=== PATIENT | male | born 1950 | race Caucasian/White ===

== ENCOUNTER 2016-11-12 13:07 | Inpatient (IN) | payer MEDICARE, OTHER ==
--- NOTE | ~2016-11-12 | CN ---
Consultation Report [address] [place]. [address] NAME: DIEGO TAPIA : 50 STATUS : ADM IN PAT#: [id number] AGE: 66 ADM/REG DATE : 11/12/16 MR#: [id number] REPORT SERV DATE: 11/13/16 DICTATED BY: OBDULIO SHAFFER DATE: 11/13/16 REPORT STATUS : Draft TRANSCRIBED BY: MODRuy DATE: 11/13/16 CONSULTATION DATE OF CONSULTATION: 11/13/2016 REASON FOR THE VISIT: Atrial fibrillation. HISTORY OF PRESENT ILLNESS: Mr. Tapia is a 66-year-old man, I saw about a month ago here for atrial fibrillation with rapid ventricular response. Unfortunately, he has a significant component of mental illness, and I am not entirely sure if he understands the gravity of his illness. He was also diagnosed with severe congestive heart failure with an ejection fraction of less than 20%. We attempted medical management with a rate control strategy. He returns for essentially the same issues and also some cellulitis. PAST MEDICAL HISTORY: 1. Asthma. 2. Psychiatric illness. 3. Hypertension. 4. Congestive heart failure with ejection fraction about 15%. 5. Atrial fibrillation, probably chronic. SOCIAL HISTORY: He lives in a snf. Smokes. FAMILY HISTORY: Noncontributory. HOME MEDICATIONS: 1. Aspirin 325 mg daily. 2. Lipitor 10 mg every night at bedtime. 3. Coreg 25 mg b.i.d. 4. Klonopin 0.5 mg daily. 5. Pradaxa 150 mg b.i.d. 6. Digoxin 0.25 mg daily. 7. Diltiazem 30 mg b.i.d. 8. Lasix 40 mg b.i.d. 9. Lisinopril 5 mg daily. 10.Zyprexa 20 mg every night at bedtime. 11.Potassium 20 mEq daily. ALLERGIES: NO KNOWN DRUG ALLERGIES. REVIEW OF SYSTEMS: A 10-system review was asked, but is not necessarily well answered. He complains of fatigue. No recent cold or flu symptoms. No fevers. Denies palpitations or chest pain. No syncope. Consultation Report [address] [place]. [address] NAME: DIEGO TAPIA : 50 STATUS : ADM IN PAT#: [id number] AGE: 66 ADM/REG DATE : 11/12/16 MR#: [id number] REPORT SERV DATE: 11/13/16 DICTATED BY: OBDULIO SHAFFER DATE: 11/13/16 REPORT STATUS : Draft TRANSCRIBED BY: LESA DATE: 11/13/16 PHYSICAL EXAMINATION: VITAL SIGNS: Temperature 97.1, heart rate 130, blood pressure 110/70. GENERAL: Mr. Tapia is a well-developed man, in no acute distress. He is alert and oriented to person and hospital. HEENT: Negative. No dehydration. No teeth. NECK: Does not show JVD. LUNGS: Have some rhonchi. No wheezing. HEART: Tones are fast and irregular. ABDOMEN: Negative. He has good bowel sounds. EXTREMITIES: Show chronic edema and chronic venous stasis changes in his bilateral lower legs. SKIN: Significant for that. Minimal bruising. NEUROLOGIC: He has normal speech. He is somewhat tangential. Moves all four extremities. LABORATORY DATA: White blood cell count 13, hematocrit 48, platelet count 354. INR 1.3. Sodium 134, potassium 5.1, BUN 41, creatinine 1.2. His troponin is 0.08. TSH 0.67. Electrocardiogram shows atrial fibrillation with a rapid ventricular response. IMPRESSION: 1. Continued atrial fibrillation with a rapid ventricular response. 2. Congestive heart failure with ejection fraction of 15% last month. 3. Mental illness. 4. Cellulitis. PLAN: As I stated, last time I saw him, if rate control fails, then AV node ablation and pacemaker placement is his best hope for any sort of cardiac recovery. I do not think an AICD would be justified due to his significant mental illness. However, the continued RVR will certainly lead to worsening problems sooner rather than later. I have offered him AV node ablation and pacemaker today. However, he is adamant that he does not want this. Unfortunately, I am sure that he does not understand the situation. I will speak with his family to see if we can make any headway there because I do believe this would be best for him and his health. He will continue his blood thinners for now. Continue rate control. [facility]/LESA Obdulio Shaffer M.D. / [id number] CC: Consultation Report [place] [id number] [place]. [address] NAME: DIEGO TAPIA : 50 STATUS : ADM IN PAT#: [id number] AGE: 66 ADM/REG DATE : 11/12/16 MR#: [id number] REPORT SERV DATE: 11/13/16 DICTATED BY: OBDULIO SHAFFER DATE: 11/13/16 REPORT STATUS : Draft TRANSCRIBED BY: MODL DATE: 11/13/16 Suman Brewer M.D.
--- NOTE | ~2016-11-12 | IDS ---
Interim Discharge Summary [facility] [address] [place]. [address] NAME: DIEGO TAPIA : 50 STATUS : ADM IN PAT#: [id number] AGE: 66 ADM/REG DATE : 11/12/16 MR#: [id number] REPORT SERV DATE: 11/16/16 DICTATED BY: SHA JOSHI DATE: 11/16/16 REPORT STATUS : Draft TRANSCRIBED BY: MODL DATE: 11/16/16 ADMISSION DATE: 11/12/2016 DISCHARGE DATE: PRINCIPAL DIAGNOSIS: Acute on chronic systolic congestive heart failure, ejection fraction 15%. SECONDARY DIAGNOSES: 1. Atrial fibrillation with rapid ventricular response with nonsustained ventricular tachyarrhythmias. 2. Stasis dermatitis with venous stasis ulcerations without cellulitis. 3. Schizophrenia. HISTORY OF PRESENT ILLNESS: Please see Dr. Ruiz's dictation, 11/12/2016. HOSPITAL COURSE: The patient was admitted with weeping wounds in his legs with a great deal of erythema; however, the limbs were cool. It was felt to be cellulitis initially; however, was not in fact felt to be infected. However, he was extremely volume overloaded. Diuretic infusion was instituted with modest benefit limited by the patient's refusal to lay supine or elevate his leg at any time, in fact, he insisted on sitting up or walking about with fluid running down his legs. The patient refused to even acknowledge that fluid is running down his legs, that he had ulcers, and that he had edema. He denies shortness of breath or chest pain. Meanwhile, he continued to have episodes of atrial fibrillation with rapid ventricular response; seen by Dr. Baltazar Shaffer, who had recommended a radiofrequency ablation with pacemaker placement. However, due to the open wounds, Dr. Cliff Ruiz of Infectious Disease felt that this was not safe for a device. The patient also had issues with brief ventricular tachyarrhythmias, but was not a candidate for AICD either for the same reasons. The patient instead was tried upon amiodarone therapy for rhythm control, but other measures were modified based on his blood pressure; he had difficulty tolerating Cardizem due to hypotension, likewise carvedilol. He was accepted to the [facility] and even [facility] and was anticipated to transfer there on 11/17/2016. Dr. Howe will presume care of this patient tomorrow. [facility]/LESA Sha Joshi M.D. / [id number] CC: Ricky Gonzalez Interim Discharge Summary [address] [address] NAME: DIEGO TAPIA : 50 STATUS : ADM IN PAT#: [id number] AGE: 66 ADM/REG DATE : 11/12/16 MR#: [id number] REPORT SERV DATE: 11/16/16 DICTATED BY: SHA JOSHI DATE: 11/16/16 REPORT STATUS : Draft TRANSCRIBED BY: LESA DATE: 11/16/16 Ricky Bishop M.D.
--- NOTE | ~2016-11-12 | IDS ---
Interim Discharge Summary [place] [address] [place]. [address] NAME: DIEGO TAPIA : 50 STATUS : ADM IN PAT#: [id number] AGE: 66 ADM/REG DATE : 11/12/16 MR#: [id number] REPORT SERV DATE: 12/07/16 DICTATED BY: CAROLIN HOWE DATE: 12/06/16 REPORT STATUS : Draft TRANSCRIBED BY: MODL DATE: 12/06/16 ADMISSION DATE: 11/12/2016 DISCHARGE DATE: This summary covers period of 11/30/2016 through 12/06/2016. CURRENT DIAGNOSES: 1. Wet gangrene, right lower extremity. 2. Acute kidney injury, improving with volume resuscitation. 3. Hyponatremia, improving with volume resuscitation. 4. Hyperkalemia associated with acute kidney injury, resolved. 5. Bilateral lower extremity cellulitis. 6. Bilateral lower extremity wounds. 7. Atrial fibrillation with rapid ventricular response, currently controlled on 2-drug therapy. 8. Cardiomyopathy, at least in part tachycardia induced. 9. Acute on chronic systolic congestive heart failure with ejection fraction of 15% by echocardiography, 09/2016. 10.Moderate mitral regurgitation. 11.Mild tricuspid regurgitation. 12.Nonsustained ventricular tachycardia (not device candidate). 13.Chronic obstructive pulmonary disease. 14.E. coli urinary tract infection, treated. 15.Paranoid schizophrenia. 16.Poor medical compliance and self-care. PRESENT ILLNESS: This is a 66-year-old white male, who was triaged in the emergency room on 11/12/2016 at 1158 hours with atrial fibrillation with a rapid ventricular response and lower extremity edema. He was referred to the Hospitalist Service for admission. He was seen by Dr. Siddhartha Ruiz, and admitted as described on admission history and physical examination. Additional history included a hospitalization here from 10/02/2016 to 10/12/2016 with diagnoses: 1. Atrial fibrillation with rapid ventricular response. 2. Severe dilated cardiomyopathy with EF of 15%. 3. Bilateral lower extremity dependent edema with seeping fluids. 4. Hypertension. 5. Undetermined psychiatric disturbance with poor baseline functioning, patient resident [facility]. ADDITIONAL HISTORY: Per Dr. Ruiz. ADMISSION LABORATORY: Per Dr. Ruiz. HOSPITAL COURSE: His hospital course from admission through 11/16/2016 is as outlined on Interim Discharge Summary [place] [address] [place]. [address] NAME: DIEGO TAPIA : 50 STATUS : ADM IN PAT#: [id number] AGE: 66 ADM/REG DATE : 11/12/16 MR#: [id number] REPORT SERV DATE: 12/07/16 DICTATED BY: CAROLIN HOWE DATE: 12/06/16 REPORT STATUS : Draft TRANSCRIBED BY: MODL DATE: 12/06/16 interim summary dictated by Dr. Suamn Brewer. His hospital course from 11/17/2016 through 11/22/2016 is as outlined on interim summary dictated by the undersigned. Hospital course from 11/24/2016 through 11/30/2016 is as outlined on interim summary dictated by Sim Lares. Interim summary 12/01 through 12/06. On initial exam on , his bilateral lower extremity wounds were worse with purulent malodorous exudate. Consultation followup was obtained with Dr. Ruiz. As before, the patient was not compliant with IV antimicrobial therapy. A culture was obtained on the and grew MSSA Pseudomonas and Streptococcus pyogenes. Dr. Ruiz started him on clindamycin. I spoke with the patient's brother, Carolin, his conservator about the patient's poor compliance with medical recommendations including laboratory studies and IV medications. We elected to pursue psychiatric consultation to see if there was any modification in his current regimen that was needed based on his current diagnoses. He was seen by Dr. Marion. He was diagnosed with schizophrenia, paranoid type. Dr. Marion recommended continuing his current psychotropic medications. On 12/01, the patient agreed to medication monitoring. On that day, his BUN was 46 and creatinine 1.38 with a white count of 16.7 and hemoglobin of 14.2. On December 04, he again agreed to laboratory studies. At this time, his sodium was 122, potassium 5.6, BUN 126, and creatinine 2.48 with a digoxin level of 1.9. His white blood cell count at that time was 28.4 with a hemoglobin of 14.2. Medication adjustments were made. Crystalloid volume resuscitation was initiated. His right lower extremity had developed gangrenous changes. Vascular consultation was obtained. He was seen by Dr. Mark Zuleta. Above-knee amputation was recommended. For the last 48 hours, Dr. Zuleta and I have had multiple conversations regarding the patient and optimal care. We have also had multiple conversations with the patient's 2 brothers, 1 of which is his conservator. The patient has been included in some of these discussions. The patient does not wish to have an amputation. Today, the brother has decided on hospice care, which they felt was in line and in accord with the patient's wishes. This is being pursued. Interim Discharge Summary [place] [address] [facility] [place]. [address] NAME: DIEGO TAPIA : 50 STATUS : ADM IN PAT#: [id number] AGE: 66 ADM/REG DATE : 11/12/16 MR#: [id number] REPORT SERV DATE: 12/07/16 DICTATED BY: CAROLIN HOWE DATE: 12/06/16 REPORT STATUS : Draft TRANSCRIBED BY: MODL DATE: 12/06/16 Gratefully with volume resuscitation, today his sodium is 129, potassium 4.4, BUN 97, and creatinine 1.67. In addition, he has agreed to IV antimicrobial therapy and is currently receiving meropenem and p.o. Augmentin. His white count has fallen to 17.7. I spoke with his brothers on 12/06, and he has been placed do not resuscitate. In addition to all of the above during this week, a level II PASRR evaluation has been done by a state benefits representative. This is still pending. An approval may have some bearing on his ultimate disposition. Hospitalist care to be assumed by [facility] hospitalist on 12/08. Waiting for state approval. DD/MODL Carolin Howe M.D. / [id number] CC: Ricky Serrato M.D.
--- NOTE | ~2016-11-12 | CN ---
Consultation Report [facility] [address] [place]. [address] NAME: DIEGO TAPIA : 50 STATUS : ADM IN PAT#: [id number] AGE: 66 ADM/REG DATE : 11/12/16 MR#: [id number] REPORT SERV DATE: 12/03/16 DICTATED BY: ERICH EM DATE: 12/03/16 REPORT STATUS : Draft TRANSCRIBED BY: MODRuy DATE: 12/03/16 PSYCHIATRIC CONSULTATION DATE OF CONSULTATION: 12/03/2016 I reviewed this patient's medical record. I discussed his status with Dr. Howe who is the hospitalist. I tried to make contact with his brother who is his conservator, but I was unsuccessful. I discussed his status with his nurse. HISTORY OF PRESENT ILLNESS: He was admitted about three weeks ago with leg edema and tachycardia. He had atrial fibrillation with a rapid ventricular response at that time. He has advanced cardiomyopathy with an ejection fraction, which is less than 20%. Currently, he is refusing IV antibiotic. He is taking all of his p.o. medications. PAST PSYCHIATRIC HISTORY: Information in the record indicates he was diagnosed with schizophrenia many years ago. MEDICATIONS: His home medication list included Zyprexa 20 mg at bedtime and Klonopin 0.5 mg daily. He is getting these medications here. SOCIAL HISTORY: He was living in a halfway prior to his recent medical issues, which required hospitalization and [facility] placement. His brother is his conservator. FAMILY HISTORY: Unknown for psychiatric illness. MENTAL STATUS: He was sitting in a chair in the waiting room. He said he did not get hospital room because "I don't want IV." He refused to explain his aversion to IV. He did not volunteer any information. However, he answered most or all of my questions without elaboration. His mood seemed somewhat anxious and apprehensive. His affect was constricted in range. His thinking had marked tangentiality. His behavior suggested excessive suspiciousness, possibly delusional. I did not observe his responding to any internal stimuli. He was oriented to "the "-"November"-"2016"-[facility] DIAGNOSIS: Schizophrenia, paranoid type. RECOMMENDATIONS: At this time, I am recommending that we should continue with his current psychotropic medications. I will try to discuss with the social insurance analyst, to explore how I might be able to help with placement issues. At this time, I believe his mental status is at baseline and is probably optimal. [facility]/LESA Erich Consultation Report [address] [place] [place]. [address] NAME: DIEGO TAPIA : 50 STATUS : ADM IN PAT#: [id number] AGE: 66 ADM/REG DATE : 11/12/16 MR#: [id number] REPORT SERV DATE: 12/03/16 DICTATED BY: ERICH EM. DATE: 12/03/16 REPORT STATUS : Draft TRANSCRIBED BY: LESA DATE: 12/03/16 Ricky Em / [id number] CC: Ricky Serrato M.D.
--- NOTE | ~2016-11-12 | DS ---
Discharge Summary [facility] [address] [facility] [place]. [address] NAME: DIEGO TAPIA : 50 STATUS : DIS IN PAT#: [id number] AGE: 66 ADM/REG DATE : 11/12/16 MR#: [id number] REPORT SERV DATE: 12/10/16 DICTATED BY: ALIZA VILLANUEVA DATE: 12/09/16 REPORT STATUS : Draft TRANSCRIBED BY: MODL DATE: 12/09/16 ADMISSION DATE: 11/12/2016 DISCHARGE DATE: 12/09/2016 DISCHARGE DIAGNOSES: 1. Wet gangrene, right lower extremity, also now left lower extremity. 2. Acute kidney injury improving with volume resuscitation, but unknown status at this time. The patient refused to have labs drawn. Hyponatremia, unknown status. Hyperkalemia, unknown status. Bilateral lower extremity cellulitis, bilateral lower extremity wounds. 3. Atrial fibrillation with rapid ventricular response, currently controlled. 4. Cardiomyopathy, most likely tachycardia induced. 5. Acute on chronic systolic congestive heart failure with an ejection fraction of 15% by echo in 09/2016. Mitral valve regurgitation. 6. Mild tricuspid regurgitation. 7. Nonsustained ventricular tachycardia, not a device candidate. 8. Chronic obstructive pulmonary disease. 9. Escherichia coli urinary tract infection, currently treated. 10.Paranoid schizophrenia. 11.Poor medical compliance and self care. BRIEF HISTORY OF PRESENT ILLNESS: The patient is a 66-year-old male who was triaged in the emergency room on 11/12/2016 with atrial fibrillation and rapid ventricular response and lower extremity edema, so he was admitted. For detailed history and physical exam, please see note dictated by Dr. Siddhartha Ruiz on 11/12/2016. HOSPITAL COURSE: After being admitted to the hospital, this patient was cared for by Dr. Suman Brewer and Dr. Filippo Howe. Please refer to interim summary dictated by Dr. Brewer on 11/16/2016, then followed by Dr. Howe on 11/23/2016, followed by Sim Lares on 11/29/2016, and followed again by Dr. Filippo Howe on 12/07/2016. I took over this patient's care on 12/08/2016. This patient was seen during that time by Dr. Jose Martin Zuleta and Dr. Cliff Ruiz, both of them recommended amputation of his lower extremity; however, family and patient decided against it because of overall poor health. At that time, discussion with the family was held about hospice, they were agreeable. Hospice saw the patient in consultation and recommended that he was an appropriate candidate; however, family decided that initially they would want to try IV antibiotics in a skilled setting for two to three weeks and then transition to hospice. The patient was referred to the correction facility. He has a PICC line in. He will be kept on Merrem for seven days and oral Augmentin. All other parameters remained as best as can be controlled. I had a long discussion with both the brothers who have conservatorship of the patient regarding his overall prognosis and that no definitive therapy was recommended or planned. Both brothers understand and agree, and they want to try taking him to the correction facility and then see how he progresses where they can transition him to hospice. Otherwise, the patient is okay and is being transferred to skilled for further care. DISCHARGE DISPOSITION: To correction facility. Discharge Summary [address] [address] NAME: DIEGO TAPIA : 50 STATUS : DIS IN PAT#: [id number] AGE: 66 ADM/REG DATE : 11/12/16 MR#: [id number] REPORT SERV DATE: 12/10/16 DICTATED BY: ALIZA VILLANUEVA DATE: 12/09/16 REPORT STATUS : Draft TRANSCRIBED BY: LESA DATE: 12/09/16 DISCHARGE ACTIVITY: As tolerated. DISCHARGE DIET: Low-sodium diet. DISCHARGE MEDICATIONS: Augmentin 500 mg p.o. 12 hours for seven days, aspirin 325 mg once daily, amiodarone 200 mg twice daily, Coreg 25 mg once daily, Pradaxa 150 mg twice daily, meropenem 500 mg IV q.6 hours for seven days, Zyprexa 20 mg once at bedtime, Klonopin 0.5 mg p.o. at noontime, oxycodone one tablet every four hours p.r.n. for pain, Senokot two tablets p.o. daily p.r.n. for constipation, Lipitor 10 mg once at bedtime, and diltiazem 30 mg twice daily for rate control. DISCHARGE FOLLOWUP: Will be by hospice once the patient decides to enroll in hospice and by the custodial physicians at the [facility]. More than 35 minutes spent planning this patient's discharge, reconciling medications, discussing hospital care, and followup with the brothers at the bedside and also discussing hospice with the family. DICTATED BY: Ricky Perez/LESA [place] [facility] at / [id number] CC: Ricky Perez M.D.
--- NOTE | ~2016-11-12 | IDS ---
Interim Discharge Summary [place] [id number] [facility] [place]. [address] NAME: DIEGO TAPIA : 50 STATUS : ADM IN PAT#: [id number] AGE: 66 ADM/REG DATE : 11/12/16 MR#: [id number] REPORT SERV DATE: 11/23/16 DICTATED BY: CAROILN HOWE DATE: 11/22/16 REPORT STATUS : Draft TRANSCRIBED BY: MODL DATE: 11/22/16 ADMISSION DATE: 11/12/2016 DISCHARGE DATE: DATE OF INTERIM SUMMARY: 11/22/2016. The interim summary covers period of 11/17/2016 through 11/22/2016. CURRENT DIAGNOSES: 1. Atrial fibrillation with rapid ventricular response, currently controlled on four-drug therapy. 2. Cardiomyopathy, at least in part tachycardia induced. 3. Acute on chronic systolic congestive heart failure with ejection fraction of 15% by echocardiography in 09/2016. 4. Moderate mitral regurgitation. 5. Mild tricuspid regurgitation. 6. Nonsustained ventricular tachycardia. 7. Acute kidney injury, improved. 8. Hyperkalemia associated with medical therapy, followup laboratory studies declined by patient. 9. Bilateral stasis dermatitis and ulcers with weeping. 10.History of hypertension. 11.Chronic obstructive pulmonary disease. 12.Escherichia coli urinary tract infection, treated. 13.Poor medical compliance and self-care. 14.Psychotic disorder including anxiety and panic, on chronic Zyprexa and clonazepam. OPERATIONS AND PROCEDURES: None. PRESENT ILLNESS: This is a 66-year-old white male who was triaged in the emergency room on 11/12/2016 at 1158 hours with atrial fibrillation with rapid ventricular response and lower extremity edema. He was referred to the Hospitalist Service for admission. He was seen by Dr. Siddhartha Ruiz and admitted as described on admission history and physical examination. Additional history included a hospitalization here from 10/02/2016 to 10/12/2016 with diagnoses: 1. Atrial fibrillation with rapid ventricular response. 2. Severe dilated cardiomyopathy with EF of 15%. 3. Bilateral lower extremity dependent edema with seeping fluids. 4. Hypertension. 5. Undetermined psychiatric disturbance with poor baseline functioning, the patient is the resident of a intermediate. ADDITIONAL HISTORY: Per Dr. Ruiz. PHYSICAL EXAMINATION: Interim Discharge Summary [address] [place]. [address] NAME: DIEGO TAPIA : 50 STATUS : ADM IN PAT#: [id number] AGE: 66 ADM/REG DATE : 11/12/16 MR#: [id number] REPORT SERV DATE: 11/23/16 DICTATED BY: CAROLIN HOWE DATE: 11/22/16 REPORT STATUS : Draft TRANSCRIBED BY: MODL DATE: 11/22/[address] Ruiz. ADMISSION LABORATORY: Per Dr. Ruiz. HOSPITAL COURSE: His hospital course from admission through 11/16/2016 is as outlined on interim summary dictated by Dr. Suman Brewer. Hospital course, 11/17/2016 through 11/22/2016: He was initially followed by Dr. Shaffer. His atrial fibrillation with rapid ventricular response has now required four-drug therapy for control. He has declined further telemetry monitoring, but with random pulse checks, his rate is controlled on a combination of amiodarone, carvedilol, digoxin, and diltiazem. He is ambulatory, not dyspneic on room air, and has no rales on exam. He continues to have weeping lower extremities with evident honey-crusted wounds. He will not keep his legs elevated. He declines regular dressing changes. He has been seen by Infectious Disease and is not thought to need antimicrobial therapy at this time. He is not thought to be a candidate for AV ablation and pacemaker therapy because of his lower extremity wounds. He has an E. coli urinary tract infection which has been treated. His hospital discharge has been delayed because of his PASRR level and need for further state interviews. He is to be transitioned to [facility]. His impression is that he is returning to his intermediate. His conservator has requested that this not be communicated to the patient. This has been vetted through Risk Management. He has declined further laboratory studies. Hospitalist care to be assumed by [address] [place] [address] Hospitalist Team. DD/MICHELLEL Carolin Howe M.D. / [id number] CC: Ricky Serrato M.D.
--- NOTE | ~2016-11-12 | IDS ---
Interim Discharge Summary [facility] [address] [place]. [address] NAME: DIEGO TAPIA : 50 STATUS : ADM IN [facility]#: [id number] AGE: 66 ADM/REG DATE : 11/12/16 MR#: [id number] REPORT SERV DATE: 11/29/16 DICTATED BY: SIM FREY DATE: 11/29/16 REPORT STATUS : Draft TRANSCRIBED BY: MODL DATE: 11/29/16 ADMISSION DATE: 11/12/2016 DISCHARGE DATE: REASON FOR ADMISSION: This is a 66-year-old male, who was admitted with bilateral leg edema and atrial fibrillation with RVR. INTERIM DISCHARGE DIAGNOSES: 1. Atrial fibrillation status post rapid ventricular response, on Pradaxa. 2. Congestive heart failure with ejection fraction of 15%. 3. Stasis dermatitis. 4. Status post hyperkalemia. 5. Psych disorder. HOSPITAL COURSE: Please see H and P from Dr. Siddhartha Ruiz from 11/12/2016 and interim discharge summary from Dr. Suman Brewer on 11/16/2016 and from Filippo Howe on 11/23/2016 for full details on admission and hospital stay. I picked up the patient on 11/24/2016. There has been no changes with the patient this week. He is still awaiting correction rehab placement. There has been some issues with getting his PASRR approved and processed. Hopefully that will be resolved this week by Case Management and the patient can discharge to correction rehab this week. No changes with medication. PETRA/LESA Sim Frey APN / [id number] CC: Ricky Gonzalez JUNG T. David Dodson, M.D.
--- NOTE | ~2016-11-12 | HP ---
History And Physical [place] [address] [facility] [place]. [address] NAME: DIEGO TAPIA : 50 STATUS : ADM IN PAT#: [id number] AGE: 66 ADM/REG DATE : 11/12/16 MR#: [id number] REPORT SERV DATE: 11/12/16 DICTATED BY: KEON LOVELACE DATE: 11/12/16 REPORT STATUS : Draft TRANSCRIBED BY: MODL DATE: 11/12/16 DATE OF ADMISSION: 11/12/2016 CHIEF COMPLAINT: Bilateral leg edema with heart rate going fast. HISTORY OF PRESENT ILLNESS: The patient is a 66-year-old male with past medical history of atrial fibrillation with RVR, bilateral cellulitis with recent admission approximately one month ago. Additionally, unknown psychiatric history, dilated cardiomyopathy with EF approximately 15%, who presents after having rapid heart rate and continued edema in his lower extremities with redness and cellulitic changes that have been weeping. Symptoms have been constant, moderate to severe in severity. Does have tenderness with sharp pain without radiation, bilateral lower extremities, associated with palpitations. The patient reports that his heart is beating too fast, please slow it down on initial presentation and currently improved after medication given in the emergency room. Denies any nausea, vomiting, headache, fever, or chills. Does have cough with bronchitis- type symptoms that he has had for a couple of weeks now. Symptoms are worsened with palpation, ambulation, and movement, improved by rest. Symptoms are currently present, but slightly improved. The patient is appears to be at his baseline mental status at this time. REVIEW OF SYSTEMS: GENERAL: Denies any fever or chills. EYES: No visual changes or pain. ENT: No sore throat, but does have occasional congestion. NEURO: No headache or confusion. SKIN: Does have bilateral rash and blistering on lower extremities. RESPIRATORY: Does have occasional shortness of breath with cough, nothing productive. CV: Tachycardic with bilateral edema. GI: No nausea, vomiting, diarrhea, or constipation. : No dysuria or hematuria. MUSCULOSKELETAL: No myalgias, arthralgias, but does have cellulitic changes in bilateral lower extremities. ENDO: No fatigue or polyuria. HEME: No bleeding or bruising. IMMUNOLOGIC: No rhinorrhea. PSYCH: Does have psych disorder, but currently not anxious or confused. PAST MEDICAL HISTORY: Noted for atrial fibrillation, dilated cardiomyopathy with EF 15%, hypertension, asthma, questionable psych disorder unknown, tobacco use. SURGERIES: The patient denies. FAMILY HISTORY: Has been reported to have heart disease and coronary disease. SOCIAL HISTORY: Smokes two and a half to three packs per day. Rare to minimal alcohol. No illicits. Lives in prison. Single, at [facility], currently two and a half to [id number]-zyd-day smoker. History And Physical [address] [address] NAME: DIEGO TAPIA : 50 STATUS : ADM IN LOCATED WITHIN [facility]#: [id number] AGE: 66 ADM/REG DATE : 11/12/16 MR#: [id number] REPORT SERV DATE: 11/12/16 DICTATED BY: KEON LOVELACE DATE: 11/12/16 REPORT STATUS : Draft TRANSCRIBED BY: LESA DATE: 11/12/16 ALLERGIES: NO KNOWN DRUG ALLERGIES. HOME MEDICATIONS: Aspirin, Lipitor, Coreg, Klonopin, Pradaxa, digoxin, Cardizem, Lasix, Prinivil, Zyprexa, Klor-Con. EKG: Rate of 159, atrial fibrillation with RVR. QTc 409. PHYSICAL EXAMINATION: VITAL SIGNS: The patient's blood pressure 120/77; rate initially 168, down to 133; respirations 19, O2 saturations 98% on room air. GENERAL: The patient is in no acute distress. Mildly disheveled. EYES: No scleral icterus. EOMI. ENT: Nares patent, but extremity poor dentition. RESPIRATORY: Mild rhonchi, but no rales or wheezes acutely. CHEST: Equal chest expansion. CV: Irregularly irregular, tachycardic. Bilateral edema. No JVD. GI: Soft, nontender, nondistended. Bowel sounds positive. : Deferred. MUSCULOSKELETAL: Moves all extremities. Bilateral lower extremity cellulitis changes, red, violent with oozing. Sitting in frog-leg position. SKIN: Cellulitic changes, red and erythematous bilateral with mild oozing. LYMPH: No cervical or supraclavicular lymphadenopathy grossly. HEME: No bleeding or bruising. NEURO: Alert to person, place. Recalls last hospitalization and having Dr. Erickson as attending. Moves all extremities and symmetrical smile. PSYCH: Appears calm and pleasant at this time. LABORATORY DATA: Portable chest. Stable interstitial prominence. Findings appear related to fibrosis. No significant pleural effusions. Sodium 134, potassium 5.1, chloride 95, BUN and creatinine 41 and 1.24, troponin 0.06. TSH within normal limits. Bicarb 29. Heme profile, WBC count 13, H and H within normal limits. Platelets 354. ASSESSMENT AND PLANS: 1. Atrial fibrillation with rapid ventricular response. 2. Bilateral cellulitis. 3. History of psychiatric disease, unknown diagnosis. 4. Cardiomyopathy with decreased ejection fraction. 5. Hypertension. 6. Tobacco use. 7. Bronchitis. PLAN: 1. Atrial fibrillation with RVR. Cardizem, Amiodarone, beta-jenelle. Continue to monitor electrolytes. Consult Dr. Shaffer. Treat underlying infection with cellulitis. 2. Bilateral cellulitis. Ancef, vancomycin protocol initiated. Elevate legs. ID consult. History And Physical [address] [address] NAME: DIEGO TAPIA : 50 STATUS : ADM IN LOCATED WITHIN [facility]#: [id number] AGE: 66 ADM/REG DATE : 11/12/16 MR#: [id number] REPORT SERV DATE: 11/12/16 DICTATED BY: KEON LOVELACE DATE: 11/12/16 REPORT STATUS : Draft TRANSCRIBED BY: LESA DATE: 11/12/16 3. Psychiatric disease. Continue home medications. Geodon given in the emergency room. Currently appears appropriate and reasonable answering his questions. 4. Cardiomyopathy with depressed EF, on OJ inhibitor, beta-jenelle, aspirin, and Pradaxa. 5. Hypertension, on medications, OJ inhibitor and Cardizem. Monitor. 6. Tobacco use. Nicotine patch. Two and half to three pack per day smoker. 7. Bronchitis. Check chest x-ray, sputum cultures. Likely viral. Needs to stop smoking. Anticipate greater than 2 midnight inpatient stay. DDN/MODL Keon Lovelace MD / [id number] CC: Suman Brewer M.D.
[2016-11-12 12:28] LABS: BASOPHILS 0.2 %; BASOPHILS ABSOLUTE 0.03 10/3/uL (0.0-0.16); EOSINOPHILS 0 %; HEMOGLOBIN 15.7 g/dL (13.6-17.8); IMMATURE GRANULOCYTES 0.3 %; IMMATURE GRANULOCYTES ABSOLUTE 0.04 10/3/uL (0.0-0.11); LYMPHOCYTES 6.9 %; MEAN CORPUS HGB CONC 32.7 g/dL (32.0-36.0); MEAN CORPUSCULAR HEMOGLOB 31.9 pg (26.0-34.0); MEAN CORPUSCULAR VOLUME 97.6 fL (80-100); MEAN PLATELET VOLUME 9.3 fL (9.2-13.0); MONOCYTES 8.8 %; MONOCYTES ABSOLUTE 1.15 10/3/uL (0.21-1.20); NEUTROPHILS 83.8 %; NEUTROPHILS ABSOLUTE 10.92 10/3/uL (2.02-8.40); RBC DISTRIBUTION WIDTH 15.3 % (12.0-16.0); RED CELL COUNT 4.92 10/6/uL (4.7-6.1)
[2016-11-12 12:30] LABS: ER CBC TAT 0 Hrs 08 Mins; MANUAL DIFF NO %; PLATELET COUNT 354 10/3/uL (150-400)
[2016-11-12 12:36] LABS: INTERNATIONAL NORMAL RATI 1.3 UNITS (-); PARTIAL THROMBO TIME 24.9 SEC (22.5-37.2)
[2016-11-12 12:44] LABS: CALCIUM, SERUM 9.1 MG/DL (8.5-10.4); CHLORIDE, SERUM 95 MMOL/L (96-112); CO2 (CARBON DIOXIDE) 29 MMOL/L (24-34); CREATININE 1.24 MG/DL (0.70-1.30); GFR AFRICAN AMERICAN 70 ML/MIN (>=60); GFR NON AFRICAN AMERICAN 60 ML/MIN (>=60); GLUCOSE, SERUM 98 MG/DL (60-99)
[2016-11-12 12:49] LABS: BUN (BLOOD UREA NITROGEN) 41 MG/DL (6-23); SODIUM, SERUM 134 MMOL/L (135-148); TROPONIN I 0.06 NG/ML (<0.05)
[2016-11-12 12:50] LABS: CHEST PAIN PROFILE TAT 0 Hrs 27 Mins; POTASSIUM, SERUM 5.1 MMOL/L (3.5-5.3)
[~2016-11-12 13:07] MED LIST: ASA5GR PO; BACDS PO; BACTROINT TOP; CARD30 PO; COREG25 PO; K-TABS10 MEQ PO; K500 PO; KLONO5 PO; KLOR-CON M2020 MEQ PO; L20 PO; L40 PO; LAN25 PO; LIPITOR10 PO; PRADAXA150 MG PO; PRIN10 PO; PRIN5 PO; SILVADENE1 % TOP; ZYPREXA ZYDI20 MG PO
[2016-11-12 13:54] LABS: ULTRASENSITIVE TSH 0.673 MCIU/ML (0.358-3.740)
[2016-11-12 18:53] LABS: PROCALCITONIN <0.05 ng/mL (<0.5)
[2016-11-12 21:35] LABS: ASCORBIC ACID (UR NOT ORDER) NEG (NEG); BILIRUBIN, URINE NEGATIVE (NEG); KETONE, URINE TRACE MG/DL (NEG); LEUKOCYTE ESTERASE(NOT OR LARGE (NEG); WBC (NOT ORDERED) (RFLEX) 75 (0-5)
[2016-11-13 09:47] LABS: DIGOXIN 0.8 NG/ML (0.8-2.0)
[2016-11-13 10:04] LABS: TROPONIN I 0.06 NG/ML (<0.05)
[2016-11-14 08:15] LABS: CHLORIDE, SERUM 97 MMOL/L (96-112); CO2 (CARBON DIOXIDE) 29 MMOL/L (24-34); CREATININE 1.38 MG/DL (0.70-1.30); GFR AFRICAN AMERICAN 61 ML/MIN (>=60); GFR NON AFRICAN AMERICAN 53 ML/MIN (>=60); GLUCOSE, SERUM 99 MG/DL (60-99); SODIUM, SERUM 136 MMOL/L (135-148)
[2016-11-14 08:16] LABS: BUN (BLOOD UREA NITROGEN) 51 MG/DL (6-23); CALCIUM, SERUM 8.1 MG/DL (8.5-10.4); DIGOXIN 1.2 NG/ML (0.8-2.0); POTASSIUM, SERUM 3.9 MMOL/L (3.5-5.3)
[2016-11-15 04:36] LABS: BASOPHILS 0.2 %; BASOPHILS ABSOLUTE 0.02 10/3/uL (0.0-0.16); EOSINOPHILS 1.5 %; EOSINOPHILS ABSOLUTE 0.15 10/3/uL (0.0-0.53); HEMATOCRIT 45.7 % (40.0-51.0); HEMOGLOBIN 14.8 g/dL (13.6-17.8); IMMATURE GRANULOCYTES 0.4 %; IMMATURE GRANULOCYTES ABSOLUTE 0.04 10/3/uL (0.0-0.11); LYMPHOCYTES 13.1 %; LYMPHOCYTES ABSOLUTE 1.33 10/3/uL (0.67-4.30); MEAN CORPUS HGB CONC 32.4 g/dL (32.0-36.0); MEAN CORPUSCULAR HEMOGLOB 31.4 pg (26.0-34.0); MONOCYTES 4.1 %; MONOCYTES ABSOLUTE 0.42 10/3/uL (0.21-1.20); NEUTROPHILS 80.7 %; NEUTROPHILS ABSOLUTE 8.17 10/3/uL (2.02-8.40); PLATELET COUNT 355 10/3/uL (150-400); RBC DISTRIBUTION WIDTH 15.2 % (12.0-16.0); RED CELL COUNT 4.71 10/6/uL (4.7-6.1); WHITE BLOOD CELLS 10.1 10/3/uL (4.5-10.5)
[2016-11-15 04:39] LABS: MANUAL DIFF NO %
[2016-11-15 04:43] LABS: CALCIUM, SERUM 8.3 MG/DL (8.5-10.4); CHLORIDE, SERUM 96 MMOL/L (96-112); CREATININE 1.36 MG/DL (0.70-1.30); GFR AFRICAN AMERICAN 62 ML/MIN (>=60); GFR NON AFRICAN AMERICAN 54 ML/MIN (>=60); GLUCOSE, SERUM 106 MG/DL (60-99); POTASSIUM, SERUM 3.3 MMOL/L (3.5-5.3); SODIUM, SERUM 141 MMOL/L (135-148)
[2016-11-15 04:44] LABS: BUN (BLOOD UREA NITROGEN) 42 MG/DL (6-23); CO2 (CARBON DIOXIDE) 35 MMOL/L (24-34)
[2016-11-16 06:45] LABS: CALCIUM, SERUM 8.5 MG/DL (8.5-10.4); CHLORIDE, SERUM 95 MMOL/L (96-112); CO2 (CARBON DIOXIDE) 36 MMOL/L (24-34); CREATININE 0.98 MG/DL (0.70-1.30); GFR AFRICAN AMERICAN 93 ML/MIN (>=60); GFR NON AFRICAN AMERICAN 80 ML/MIN (>=60); GLUCOSE, SERUM 127 MG/DL (60-99); POTASSIUM, SERUM 3.6 MMOL/L (3.5-5.3); SODIUM, SERUM 139 MMOL/L (135-148)
[2016-11-16 06:49] LABS: BUN (BLOOD UREA NITROGEN) 32 MG/DL (6-23)
[2016-11-17 05:17] LABS: A/G RATIO 0.7 (0.7-1.9); ALBUMIN 2.8 G/DL (3.5-5.0); ALKALINE PHOSPHATASE 65 U/L (45-117); BUN (BLOOD UREA NITROGEN) 30 MG/DL (6-23); CALCIUM, SERUM 8.5 MG/DL (8.5-10.4); CHLORIDE, SERUM 99 MMOL/L (96-112); CO2 (CARBON DIOXIDE) 33 MMOL/L (24-34); CREATININE 0.94 MG/DL (0.70-1.30); GFR AFRICAN AMERICAN 98 ML/MIN (>=60); GFR NON AFRICAN AMERICAN 84 ML/MIN (>=60); GLOBULIN 3.8 G/DL (2.5-4.1); GLUCOSE, SERUM 83 MG/DL (60-99); POTASSIUM, SERUM 4.2 MMOL/L (3.5-5.3); SGOT(AST) 34 U/L (5-40); SGPT(ALT) 36 U/L (5-65); SODIUM, SERUM 139 MMOL/L (135-148); TOTAL BILIRUBIN 1.1 MG/DL (0-1.2); TOTAL PROTEIN 6.6 G/DL (6.0-8.5)
[2016-11-18 05:55] LABS: BASOPHILS 0.2 %; BASOPHILS ABSOLUTE 0.03 10/3/uL (0.0-0.16); EOSINOPHILS 1.3 %; EOSINOPHILS ABSOLUTE 0.18 10/3/uL (0.0-0.53); HEMATOCRIT 42.6 % (40.0-51.0); HEMOGLOBIN 13.6 g/dL (13.6-17.8); IMMATURE GRANULOCYTES 0.7 %; IMMATURE GRANULOCYTES ABSOLUTE 0.09 10/3/uL (0.0-0.11); LYMPHOCYTES 7.1 %; LYMPHOCYTES ABSOLUTE 0.96 10/3/uL (0.67-4.30); MANUAL DIFF NO %; MEAN CORPUS HGB CONC 31.9 g/dL (32.0-36.0); MEAN CORPUSCULAR HEMOGLOB 31.6 pg (26.0-34.0); MEAN CORPUSCULAR VOLUME 98.8 fL (80-100); MEAN PLATELET VOLUME 8.8 fL (9.2-13.0); MONOCYTES 10.3 %; NEUTROPHILS 80.4 %; NEUTROPHILS ABSOLUTE 10.87 10/3/uL (2.02-8.40); PLATELET COUNT 315 10/3/uL (150-400); RBC DISTRIBUTION WIDTH 15.2 % (12.0-16.0); RED CELL COUNT 4.31 10/6/uL (4.7-6.1); WHITE BLOOD CELLS 13.5 10/3/uL (4.5-10.5)
[2016-11-18 13:10] LABS: BUN (BLOOD UREA NITROGEN) 31 MG/DL (6-23); CALCIUM, SERUM 8.6 MG/DL (8.5-10.4); CHLORIDE, SERUM 95 MMOL/L (96-112); CO2 (CARBON DIOXIDE) 32 MMOL/L (24-34); CREATININE 0.91 MG/DL (0.70-1.30); GFR AFRICAN AMERICAN 101 ML/MIN (>=60); GFR NON AFRICAN AMERICAN 88 ML/MIN (>=60); GLUCOSE, SERUM 91 MG/DL (60-99); POTASSIUM, SERUM 5.2 MMOL/L (3.5-5.3); SODIUM, SERUM 134 MMOL/L (135-148)
[2016-11-20 07:28] LABS: BASOPHILS 0.2 %; BASOPHILS ABSOLUTE 0.02 10/3/uL (0.0-0.16); EOSINOPHILS 1.3 %; EOSINOPHILS ABSOLUTE 0.15 10/3/uL (0.0-0.53); HEMATOCRIT 43.4 % (40.0-51.0); HEMOGLOBIN 13.7 g/dL (13.6-17.8); IMMATURE GRANULOCYTES 0.5 %; IMMATURE GRANULOCYTES ABSOLUTE 0.06 10/3/uL (0.0-0.11); LYMPHOCYTES 8.7 %; LYMPHOCYTES ABSOLUTE 0.97 10/3/uL (0.67-4.30); MEAN CORPUS HGB CONC 31.6 g/dL (32.0-36.0); MEAN CORPUSCULAR HEMOGLOB 31.1 pg (26.0-34.0); MEAN CORPUSCULAR VOLUME 98.4 fL (80-100); MONOCYTES 10.5 %; MONOCYTES ABSOLUTE 1.18 10/3/uL (0.21-1.20); NEUTROPHILS 78.8 %; NEUTROPHILS ABSOLUTE 8.81 10/3/uL (2.02-8.40); PLATELET COUNT 348 10/3/uL (150-400); RED CELL COUNT 4.41 10/6/uL (4.7-6.1); WHITE BLOOD CELLS 11.2 10/3/uL (4.5-10.5)
[2016-11-20 07:29] LABS: MANUAL DIFF NO %
[2016-11-20 07:38] LABS: BUN (BLOOD UREA NITROGEN) 36 MG/DL (6-23); CHLORIDE, SERUM 93 MMOL/L (96-112); CO2 (CARBON DIOXIDE) 31 MMOL/L (24-34); CREATININE 1.09 MG/DL (0.70-1.30); GFR AFRICAN AMERICAN 82 ML/MIN (>=60); GFR NON AFRICAN AMERICAN 70 ML/MIN (>=60); GLUCOSE, SERUM 120 MG/DL (60-99); POTASSIUM, SERUM 5.4 MMOL/L (3.5-5.3); SODIUM, SERUM 132 MMOL/L (135-148)
[2016-11-25 12:32] LABS: CALCIUM, SERUM 8.5 MG/DL (8.5-10.4); CHLORIDE, SERUM 99 MMOL/L (96-112); CO2 (CARBON DIOXIDE) 27 MMOL/L (24-34); CREATININE 0.94 MG/DL (0.70-1.30); GFR AFRICAN AMERICAN 98 ML/MIN (>=60); GFR NON AFRICAN AMERICAN 84 ML/MIN (>=60); GLUCOSE, SERUM 99 MG/DL (60-99); POTASSIUM, SERUM 4.5 MMOL/L (3.5-5.3)
[2016-11-25 12:33] LABS: BUN (BLOOD UREA NITROGEN) 16 MG/DL (6-23); SODIUM, SERUM 139 MMOL/L (135-148)
[2016-12-01 10:45] LABS: HEMATOCRIT 43.8 % (40.0-51.0); HEMOGLOBIN 14.2 g/dL (13.6-17.8); MEAN CORPUS HGB CONC 32.4 g/dL (32.0-36.0); MEAN CORPUSCULAR HEMOGLOB 31.6 pg (26.0-34.0); MEAN CORPUSCULAR VOLUME 97.6 fL (80-100); MEAN PLATELET VOLUME 9.4 fL (9.2-13.0); RBC DISTRIBUTION WIDTH 15.8 % (12.0-16.0); RED CELL COUNT 4.49 10/6/uL (4.7-6.1)
[2016-12-01 10:46] LABS: MANUAL DIFF YES %; PLATELET COUNT 192 10/3/uL (150-400); WHITE BLOOD CELLS 16.7 10/3/uL (4.5-10.5)
[2016-12-01 11:02] LABS: LYMPHOCYTES 8 %; LYMPHOCYTES ABSOLUTE (CALC) 1.34 10/3/uL (0.67-4.30); MONOCYTES 6 %; NEUTROPHILS ABSOLUTE (CALC) 14.36 10/3/uL (2.02-8.40); PLATELET ESTIMATE ADQ (ADEQUATE); RBC MORPHOLOGY NORM (NORMAL); SEGMENTED NEUTROPHIL (0) 86 %; TOTAL NUCLEATED CELLS 100
[2016-12-01 14:05] LABS: A/G RATIO 0.4 (0.7-1.9); ALBUMIN 2.3 G/DL (3.5-5.0); ALKALINE PHOSPHATASE 72 U/L (45-117); BUN (BLOOD UREA NITROGEN) 46 MG/DL (6-23); CALCIUM, SERUM 8.9 MG/DL (8.5-10.4); CHLORIDE, SERUM 91 MMOL/L (96-112); CO2 (CARBON DIOXIDE) 30 MMOL/L (24-34); CREATININE 1.38 MG/DL (0.70-1.30); GFR AFRICAN AMERICAN 61 ML/MIN (>=60); GFR NON AFRICAN AMERICAN 53 ML/MIN (>=60); GLOBULIN 5.3 G/DL (2.5-4.1); GLUCOSE, SERUM 124 MG/DL (60-99); POTASSIUM, SERUM 4.7 MMOL/L (3.5-5.3); SGOT(AST) 18 U/L (5-40); SGPT(ALT) 19 U/L (5-65); SODIUM, SERUM 132 MMOL/L (135-148); TOTAL BILIRUBIN 0.5 MG/DL (0-1.2); TOTAL PROTEIN 7.6 G/DL (6.0-8.5)
[2016-12-04 13:09] LABS: HEMATOCRIT 40.4 % (40.0-51.0); HEMOGLOBIN 14.2 g/dL (13.6-17.8); MEAN PLATELET VOLUME 10.5 fL (9.2-13.0); RBC DISTRIBUTION WIDTH 14.8 % (12.0-16.0); RED CELL COUNT 4.44 10/6/uL (4.7-6.1)
[2016-12-04 13:10] LABS: MANUAL DIFF YES %; MEAN CORPUS HGB CONC 35.1 g/dL (32.0-36.0); PLATELET COUNT 385 10/3/uL (150-400); WHITE BLOOD CELLS 28.4 10/3/uL (4.5-10.5)
[2016-12-04 13:20] LABS: BAND NEUTROPHILS 19 %; LYMPHOCYTES 5 %; LYMPHOCYTES ABSOLUTE (CALC) 1.42 10/3/uL (0.67-4.30); MONOCYTES 4 %; MONOCYTES ABSOLUTE (CALC) 1.14 10/3/uL (0.21-1.20); NEUTROPHILS ABSOLUTE (CALC) 25.84 10/3/uL (2.02-8.40); PLATELET ESTIMATE ADQ (ADEQUATE); RBC MORPHOLOGY NORM (NORMAL); SEGMENTED NEUTROPHIL (0) 72 %; TOTAL NUCLEATED CELLS 100
[2016-12-04 13:33] LABS: ALBUMIN 2.1 G/DL (3.5-5.0); CALCIUM, SERUM 8.7 MG/DL (8.5-10.4); CHLORIDE, SERUM 83 MMOL/L (96-112); GLUCOSE, SERUM 108 MG/DL (60-99)
[2016-12-04 13:37] LABS: CO2 (CARBON DIOXIDE) 25 MMOL/L (24-34); CREATININE 2.48 MG/DL (0.70-1.30); DIGOXIN 1.9 NG/ML (0.8-2.0); GFR AFRICAN AMERICAN 30 ML/MIN (>=60); GFR NON AFRICAN AMERICAN 26 ML/MIN (>=60); PHOSPHORUS, SERUM 5.7 MG/DL (2.5-4.5)
[2016-12-04 13:51] LABS: BUN (BLOOD UREA NITROGEN) 126 MG/DL (6-23); POTASSIUM, SERUM 5.6 MMOL/L (3.5-5.3); SODIUM, SERUM 122 MMOL/L (135-148)
[2016-12-05 07:52] LABS: HEMATOCRIT 38.5 % (40.0-51.0); HEMOGLOBIN 13.6 g/dL (13.6-17.8); MANUAL DIFF YES %; MEAN CORPUS HGB CONC 35.3 g/dL (32.0-36.0); MEAN CORPUSCULAR HEMOGLOB 31.7 pg (26.0-34.0); MEAN CORPUSCULAR VOLUME 89.7 fL (80-100); MEAN PLATELET VOLUME 10.3 fL (9.2-13.0); PLATELET COUNT 457 10/3/uL (150-400); RBC DISTRIBUTION WIDTH 15.3 % (12.0-16.0); RED CELL COUNT 4.29 10/6/uL (4.7-6.1); WHITE BLOOD CELLS 23.6 10/3/uL (4.5-10.5)
[2016-12-05 08:14] LABS: BAND NEUTROPHILS 14 %; IMMATURE GRANS ABSOLUTE (CALC) 0.24 10/3/uL (0.0-0.11); LYMPHOCYTES 4 %; LYMPHOCYTES ABSOLUTE (CALC) 0.94 10/3/uL (0.67-4.30); METAMYELOCYTES 1 %; MONOCYTES 8 %; MONOCYTES ABSOLUTE (CALC) 1.89 10/3/uL (0.21-1.20); NEUTROPHILS ABSOLUTE (CALC) 20.53 10/3/uL (2.02-8.40); SEGMENTED NEUTROPHIL (0) 73 %; TOTAL NUCLEATED CELLS 100
[2016-12-05 08:15] LABS: PLATELET ESTIMATE ADQ (ADEQUATE); RBC MORPHOLOGY NORM (NORMAL); REACTIVE LYMPHS OCC (0-2%) (0-5%)
[2016-12-05 08:24] LABS: CHLORIDE, SERUM 87 MMOL/L (96-112); CO2 (CARBON DIOXIDE) 26 MMOL/L (24-34); CREATININE 2.18 MG/DL (0.70-1.30); GFR AFRICAN AMERICAN 35 ML/MIN (>=60); GFR NON AFRICAN AMERICAN 30 ML/MIN (>=60); GLUCOSE, SERUM 109 MG/DL (60-99); SODIUM, SERUM 123 MMOL/L (135-148)
[2016-12-05 08:26] LABS: BUN (BLOOD UREA NITROGEN) 123 MG/DL (6-23); CALCIUM, SERUM 9.7 MG/DL (8.5-10.4)
[2016-12-06 08:59] LABS: HEMATOCRIT 38.5 % (40.0-51.0); HEMOGLOBIN 12.8 g/dL (13.6-17.8); MEAN CORPUSCULAR HEMOGLOB 30.6 pg (26.0-34.0); MEAN CORPUSCULAR VOLUME 92.1 fL (80-100); MEAN PLATELET VOLUME 10.1 fL (9.2-13.0); PLATELET COUNT 562 10/3/uL (150-400); RBC DISTRIBUTION WIDTH 15.1 % (12.0-16.0); RED CELL COUNT 4.18 10/6/uL (4.7-6.1); WHITE BLOOD CELLS 17.7 10/3/uL (4.5-10.5)
[2016-12-06 09:00] LABS: MANUAL DIFF YES %; MEAN CORPUS HGB CONC 33.2 g/dL (32.0-36.0)
[2016-12-06 09:13] LABS: CHLORIDE, SERUM 92 MMOL/L (96-112); CO2 (CARBON DIOXIDE) 27 MMOL/L (24-34); GLUCOSE, SERUM 89 MG/DL (60-99); SODIUM, SERUM 129 MMOL/L (135-148)
[2016-12-06 09:15] LABS: BUN (BLOOD UREA NITROGEN) 97 MG/DL (6-23); CALCIUM, SERUM 8.6 MG/DL (8.5-10.4); CREATININE 1.67 MG/DL (0.70-1.30); GFR AFRICAN AMERICAN 49 ML/MIN (>=60); GFR NON AFRICAN AMERICAN 42 ML/MIN (>=60); POTASSIUM, SERUM 4.4 MMOL/L (3.5-5.3)
[2016-12-06 09:22] LABS: BAND NEUTROPHILS 7 %; EOSINOPHILS 1 %; EOSINOPHILS ABSOLUTE (CALC) 0.18 10/3/uL (0.0-0.53); IMMATURE GRANS ABSOLUTE (CALC) 0.18 10/3/uL (0.0-0.11); LYMPHOCYTES 8 %; LYMPHOCYTES ABSOLUTE (CALC) 1.42 10/3/uL (0.67-4.30); METAMYELOCYTES 1 %; MONOCYTES 6 %; MONOCYTES ABSOLUTE (CALC) 1.06 10/3/uL (0.21-1.20); NEUTROPHILS ABSOLUTE (CALC) 14.87 10/3/uL (2.02-8.40); PLATELET ESTIMATE SLT INC (ADEQUATE); RBC MORPHOLOGY NORM (NORMAL); REACTIVE LYMPHS OCC (0-2%) (0-5%); SEGMENTED NEUTROPHIL (0) 77 %; TOTAL NUCLEATED CELLS 100
[2016-12-07 17:03] LABS: HEMATOCRIT 37.4 % (40.0-51.0); HEMOGLOBIN 12.6 g/dL (13.6-17.8); MEAN CORPUS HGB CONC 33.7 g/dL (32.0-36.0); MEAN CORPUSCULAR HEMOGLOB 31.3 pg (26.0-34.0); MEAN CORPUSCULAR VOLUME 92.8 fL (80-100); MEAN PLATELET VOLUME 9.4 fL (9.2-13.0); PLATELET COUNT 584 10/3/uL (150-400); RBC DISTRIBUTION WIDTH 15.5 % (12.0-16.0); RED CELL COUNT 4.03 10/6/uL (4.7-6.1)
[2016-12-07 17:04] LABS: CALCIUM, SERUM 8.2 MG/DL (8.5-10.4); CHLORIDE, SERUM 96 MMOL/L (96-112); CO2 (CARBON DIOXIDE) 27 MMOL/L (24-34); POTASSIUM, SERUM 4.2 MMOL/L (3.5-5.3); SODIUM, SERUM 132 MMOL/L (135-148)
[2016-12-07 17:05] LABS: BUN (BLOOD UREA NITROGEN) 47 MG/DL (6-23); CREATININE 1.14 MG/DL (0.70-1.30); GFR AFRICAN AMERICAN 77 ML/MIN (>=60); GFR NON AFRICAN AMERICAN 67 ML/MIN (>=60); GLUCOSE, SERUM 129 MG/DL (60-99)
[2016-12-07 17:06] LABS: MANUAL DIFF YES %
[2016-12-07 17:33] LABS: ANISOCYTOSIS 1+ (5-10/OIF) (0-5/OIF); BAND NEUTROPHILS 1 %; IMMATURE GRANS ABSOLUTE (CALC) 0.42 10/3/uL (0.0-0.11); LYMPHOCYTES 6 %; LYMPHOCYTES ABSOLUTE (CALC) 0.84 10/3/uL (0.67-4.30); METAMYELOCYTES 3 %; MONOCYTES 8 %; MONOCYTES ABSOLUTE (CALC) 1.12 10/3/uL (0.21-1.20); NEUTROPHILS ABSOLUTE (CALC) 11.62 10/3/uL (2.02-8.40); PLATELET ESTIMATE SLT INC (ADEQUATE); SEGMENTED NEUTROPHIL (0) 82 %; TOTAL NUCLEATED CELLS 100
[2016-12-08 17:17] LABS: HEMATOCRIT 35.3 % (40.0-51.0); HEMOGLOBIN 11.6 g/dL (13.6-17.8); MEAN CORPUS HGB CONC 32.9 g/dL (32.0-36.0); MEAN CORPUSCULAR VOLUME 94.4 fL (80-100); MEAN PLATELET VOLUME 9.1 fL (9.2-13.0); PLATELET COUNT 635 10/3/uL (150-400); RBC DISTRIBUTION WIDTH 15.5 % (12.0-16.0); RED CELL COUNT 3.74 10/6/uL (4.7-6.1); WHITE BLOOD CELLS 18.4 10/3/uL (4.5-10.5)
[2016-12-08 17:18] LABS: MANUAL DIFF YES %
[2016-12-08 17:28] LABS: CALCIUM, SERUM 7.8 MG/DL (8.5-10.4); CHLORIDE, SERUM 97 MMOL/L (96-112); CO2 (CARBON DIOXIDE) 28 MMOL/L (24-34); CREATININE 0.99 MG/DL (0.70-1.30); GFR AFRICAN AMERICAN 92 ML/MIN (>=60); GFR NON AFRICAN AMERICAN 79 ML/MIN (>=60); POTASSIUM, SERUM 4.3 MMOL/L (3.5-5.3); SODIUM, SERUM 132 MMOL/L (135-148)
[2016-12-08 17:29] LABS: BUN (BLOOD UREA NITROGEN) 33 MG/DL (6-23); GLUCOSE, SERUM 86 MG/DL (60-99)
[2016-12-08 18:08] LABS: BAND NEUTROPHILS 2 %; EOSINOPHILS 1 %; EOSINOPHILS ABSOLUTE (CALC) 0.18 10/3/uL (0.0-0.53); LYMPHOCYTES 8 %; LYMPHOCYTES ABSOLUTE (CALC) 1.47 10/3/uL (0.67-4.30); METAMYELOCYTES 6 %; MONOCYTES 2 %; MONOCYTES ABSOLUTE (CALC) 0.37 10/3/uL (0.21-1.20); NEUTROPHILS ABSOLUTE (CALC) 15.27 10/3/uL (2.02-8.40); SEGMENTED NEUTROPHIL (0) 81 %; TOTAL NUCLEATED CELLS 100
[2016-12-08 18:09] LABS: RBC MORPHOLOGY ABN (NORMAL)
[2016-12-08 18:10] LABS: PLATELET ESTIMATE INC (ADEQUATE)
== END 2016-12-09 10:45 | DRG 308 ==
LOC: ER 13:07 → 6NO 16:09
PROVIDERS: Hospitalist; Internal Medicine; Internal Medicine Cardiovascular Disease; Nurse Practitioner Gerontology; Student in an Organized Health Care Education/Training Program
DX: I48.91 Unspecified atrial fibrillation (principal); I50.23 Acute on chronic systolic (congestive) heart failure; I47.2 Ventricular tachycardia; I96 Gangrene, not elsewhere classified; N17.9 Acute kidney failure, unspecified; I42.0 Dilated cardiomyopathy; L03.115 Cellulitis of right lower limb; N39.0 Urinary tract infection, site not specified; F20.0 Paranoid schizophrenia; L97.929 Non-pressure chronic ulcer of unspecified part of left lower leg with unspecified severity; L97.919 Non-pressure chronic ulcer of unspecified part of right lower leg with unspecified severity; E87.1 Hypo-osmolality and hyponatremia; L03.116 Cellulitis of left lower limb; I11.9 Hypertensive heart disease without heart failure; E87.5 Hyperkalemia; J45.909 Unspecified asthma, uncomplicated; F17.210 Nicotine dependence, cigarettes, uncomplicated; J44.9 Chronic obstructive pulmonary disease, unspecified; B96.20 Unspecified Escherichia coli [E. coli] as the cause of diseases classified elsewhere; Z91.19 Patient's noncompliance with other medical treatment and regimen; I08.1 Rheumatic disorders of both mitral and tricuspid valves; I87.2 Venous insufficiency (chronic) (peripheral); B95.5 Unspecified streptococcus as the cause of diseases classified elsewhere; B96.5 Pseudomonas (aeruginosa) (mallei) (pseudomallei) as the cause of diseases classified elsewhere; B95.61 Methicillin susceptible Staphylococcus aureus infection as the cause of diseases classified elsewhere
CPT/HCPCS: 71010; 80048; 80053; 80069; 80162; 81001; 83605; 83735; 83880; 84145; 84443; 84484; 85025; 85610; 85730; 87040; 87070; 87077; 87086; 87186; 87205; 93005; 96374; 96375; 96376; 97161-GP; 97166-GO; 99291; A9270-GY; G8978-CJ-GP; G8979-CJ-GP; G8980-CJ-GP; G8987-CH-GO; G8988-CH-GO; G8989-CH-GO; J0282; J0690; J0692; J1160; J1940; J2185; J3370; J3486; P9047